=== PATIENT | female | born 1960 | race Caucasian/White ===

== ENCOUNTER 2016-11-04 15:25 | Emergency (ER) | payer MEDICARE ==
[~2016-11-04] VITALS: Ht 154.9 cm; Wt 50.0 kg
[~2016-11-04 15:25] MED LIST: ALBU8.5H2 IH; ALBU8.5H4 IH; BECL8.7A5 INH; DIAZ5TAB3 PO; ESTR42.52 VG; FLUT16SP2 NS; LAMO200T2 PO; LEVO50TA6 PO; LIT450 PO; OMEP20TA86 PO; PROP40TA5 PO; QUET300T PO; TOPI200T7 PO
[2016-11-04 15:37] VITALS: BP 101/70; PULSE 55; RESP 16; O2SAT 99
[2016-11-04 16:28] LABS: BASOPHILS % (AUTO) 0.2 % (0-3); EOSINOPHILS % (AUTO) 2.5 % (0-5); MONOCYTES % (AUTO) 8.3 % (4-12); Mean Corpuscular Hemoglobin 30.3 pg (27.0-35.0); Mean Corpuscular Volume 93.7 fL (81-100); Platelet Count 233 bil/L (150-400)
--- NOTE | 2016-11-04 16:40 | DRSVH ---
PROCEDURE: X-RAY CHEST ONE VIEW, PORTABLE ([id number]) INDICATIONS: SHORT OF BREATH TECHNIQUE: One view of the chest was acquired. COMPARISON: [facility], CR, CHEST 2VW, 02/21/2012, 20:09. FINDINGS: Surgical changes and devices: None. Lungs and pleura: No pleural effusions or pneumothorax. Lungs are clear. Mediastinum: Mediastinal contours appear normal. Heart size is normal. Bones and chest wall: No suspicious bony lesions. Overlying soft tissues appear unremarkable. IMPRESSION: Normal for age. Dictated by: Len Stone M.D. on 11/04/2016 at 16:38 Approved by: Len Stone M.D. on 11/04/2016 at 16:38
[2016-11-04] MEDS ORDERED: predniSONE 20 mg Tablet PO ONE (18:55)
[2016-11-04] MEDS ORDERED: Albuterol-Ipratropium 3 mL Inhalation Solution NEB ONE (19:00)
[2016-11-04] MEDS ORDERED: Albuterol 2.5 mg/3 mL Inhalation Solution NEB ONE ×3 (19:00→20:25)
--- NOTE | 2016-11-04 19:35 | ED.REPORT ---
HPI-Dyspnea / Wheezing Date of Service Nov 04, 2016 ED Provider: Thaddeus Paez PA-C Lynette is a 56-year-old female with a history of asthma who presents with a chief complaint of wheezing. Patient states that her asthma has been acting up since yesterday, with wheezing, coughing and a sensation that she cannot get all the air out of her lungs. Also complaints of dyspnea, malaise and rhinorrhea. Denies nasal congestion, eye symptoms, ear symptoms, palpitations, abdominal pain, vomiting, diarrhea fever, chills She manages her asthma with her daily inhaler which she cannot recall the name of as well as albuterol nebulizer and MDI. She has used a significant amount of albuterol today. Reports a history of craniotomy 4 years ago and bipolar disorder that is well controlled. Nursing Notes Stated Complaint: ASTHMA PROBLEMS Chief Complaint: Respiratory Distress Nursing Notes Reviewed: Yes Allergies: Coded Allergies: Codfish (Verified Allergy, Severe, Anaphylaxis, 11/05/16) sumatriptan (Verified Allergy, Severe, throat tightening, 11/05/16) Scheduled Beclomethasone Dipropionate (Qvar) 8.7 Gm Aer.w.adap 2 PUFF INH DAILY Estradiol (Estrace) 42.5 Gm Cream.appl 1 G VG twice weekly Fluticasone Propionate (Flonase Nasal) 16 Gm [place].susp 2 SPRAYS NS BID Lamotrigine (Lamotrigine) 200 Mg Tablet 100 MG PO BID Levothyroxine (Levothyroxine) 50 Mcg Tablet 100 MCG PO DAILY [place] Carbonate ([place] Carbonate XR) 450 Mg Tablet.er 450 MG PO BID Omeprazole (Omeprazole) 20 Mg Tablet.dr 20 MG PO DAILY Oseltamivir Phosphate (Oseltamivir Phosphate) 75 Mg Capsule 75 MG PO BID Prednisone (PredniSONE) 50 Mg Tablet 50 MG PO DAILY Propranolol HCl (Propranolol HCl) 40 Mg Tablet 120 MG PO DAILY Quetiapine Fumarate (Seroquel) 300 Mg Tablet 400 MG PO HS Topiramate (Topiramate) 200 Mg Tablet 200 MG PO BID Scheduled PRN Albuterol HFA (Albuterol HFA) 8.5 Gm Hfa.aer.ad 1 PUFF IH Q4 PRN PRN For Shortness of Breath Albuterol HFA (Proair HFA) 8.5 Gm Hfa.aer.ad 2 PUFFS IH Q4 PRN PRN For Shortness of Breath Albuterol Neb Soln (Albuterol Neb Soln) 2.5 Mg/3 Ml Vial.neb 2.5 MG INHALATION Q4H PRN PRN For Wheezing Albuterol Neb Soln (Albuterol Neb Soln) 2.5 Mg/3 Ml Vial.neb 2.5 MG INHALATION Q4H PRN PRN For Wheezing Diazepam (Diazepam) 5 Mg Tablet 5 MG PO TID PRN PRN For Anxiety General Time Seen by MD: 18:44 Chief Complaint Asthma attack Risk Factors PERC Rule All PERC criteria "No", PERC rule satisfied Past Medical History Past Medical History Notes: PCP: Dr. Tania Palomino Past Medical History Bipolar, TBI subdural bleed 2011 Reports: Asthma, GERD Past Surgical History Craniotomy 2012 Abdominalplasty 03/09/15, pt states 10# of pendulous pannus removed. Reports: , Hysterectomy Family History Reports: Cancer Smoking History Never Smoker Social History Alcohol Use: "Social" Drug Use: Denies drug use Ambulatory Status Independent Review of Systems General: Admits Malaise, Denies fever, chills HEENT: Denies congestion, headache, sore throat. Respiratory: Admits dyspnea, cough, shortness of breath, wheezing. Cardiovascular: Denies chest pain, palpitations. Gastrointestinal: Denies vomiting, diarrhea, abdominal pain. Otherwise as noted in HPI. Physical Exam General: Ill appearing, well developed, thin, no acute distress. Head: Atraumatic, normocephalic. Eyes: No scleral icterus or injection. No discharge. Vision grossly intact. ENT: Voice clear, hearing grossly intact. Respiratory: Regular rate and rhythm. Mild diffuse wheezes bilaterally, mild rhonchi in right base Cardiovascular: Regular rate and rhythm, without murmur, gallop or rub. No pedal edema. Gastrointestinal: Abdomen flat and non-tender without guarding or rebound. Bowel sounds normoactive. Skin: Warm and dry. Neurological: Grossly nonfocal. Psychological: Alert and oriented. Speech appropriate, linear and logical. Behavior appropriate. Initial Vital Signs Vital Signs (First) Date Time Temp Pulse Resp B/P Pulse Ox O2 Delivery O2 Flow Rate FiO2 11/04/16 15:37 37.0 55 16 101/70 99 Room Air Initial VS: Reviewed, Vital signs abnormal (bradycardia) Interpretation & Diagnostics Lab Results Interpretation Result Diagram: 11/04/16 1604 11/04/16 1604 Test 11/04/16 16:04 White Blood Count 8.3th/mm3 (3.8-10.1) Red Blood Count 4.26mil/mm3 (3.90-5.20) Hemoglobin 12.9g/dL (12.0-15.6) Hematocrit 39.9% (35.0-46.0) Mean Corpuscular Volume 93.7fL (81-100) Mean Corpuscular Hemoglobin 30.3pg (27.0-35.0) Mean Corpuscular Hemoglobin Concent 32.3% (32.0-37.0) Red Cell Distribution Width 13.1% (12.3-15.4) Platelet Count 233bil/L (150-400) Neutrophils (%) (Auto) 67.0% (40-74) Lymphocytes (%) (Auto) 21.9% (14-46) Monocytes (%) (Auto) 8.3% (4-12) Eosinophils (%) (Auto) 2.5% (0-5) Basophils (%) (Auto) 0.2% (0-3) Sodium Level 135mEq/L (134-144) Potassium Level 4.3mEq/L (3.5-5.2) Chloride Level 102mEq/L (97-108) Carbon Dioxide Level 24mmol/L (18-29) Blood Urea Nitrogen 15mg/dL (6-24) Creatinine 1.05mg/dL (0.57-1.00) Estimat Glomerular Filtration Rate 78mL/min (>59) Glucose Level 109mg/dL (60-99) Calcium Level 9.8mg/dL (8.5-10.1) Total Bilirubin 0.2mg/dL (0.0-1.2) Aspartate Amino Transf (AST/SGOT) 25U/L (0-50) Alanine Aminotransferase (ALT/SGPT) 32U/L (0-32) Alkaline Phosphatase 91U/L (25-150) Total Protein 6.8g/dL (6.4-8.4) Albumin 4.2g/dL (3.4-5.0) Hold Urena Top Tube Received (Received) X-Ray Chest Interpretation Chest Xray Interpretation: PROCEDURE: X-RAY CHEST ONE VIEW, PORTABLE ([id number]) INDICATIONS: SHORT OF BREATH IMPRESSION: Normal for age. Interpretation / Wet Read by: Interpret - Radiologist Re-Eval/Medical Decision Med Decision/Clinical Course Discussed this case with Dr. Bunn, who met with and examine the patient Otherwise healthy 56-year-old female with a history of asthma presents with chief complaint of wheezing since yesterday. Symptoms are familiar to her and consistent with her typical asthma exacerbation. Says that she feels that she cannot get the air out. Attempting to treated with with albuterol nebulizer and MDI. Vitals and labs are within acceptable limits, physical examination is fairly benign exception of mild wheezes in all garcia. Patient responded minimally to 1 treatment of DuoNeb, albuterol nebulizers and prednisone. Follow treatment with additional albuterol, IV Solu-Medrol, IV magnesium. Lungs are clear in all garcia on reassessment. Patient feels tired but states she feels comfortable with going home. Patient cough is not productive of sputum, so antibiotic treatment is deferred. Discharge patient with prescription for Tamiflu because she did not receive the flu vaccination, 5 days of prednisone, and albuterol nebulizer solution. Advise primary care follow-up, return precautions Re-Evaluation/Progress #1: Time of Eval: 20:06 Re-Evaluation/Progress Note: After the first round of breathing treatments, the patient reports she feels better. On auscultation mild wheezes remain though perhaps slightly improved. Rhonchi in right base are less noticeable. Re-Evaluation/Progress #2: Time of Eval: 21:14 Re-Evaluation/Progress Note: Patient's lungs are clear of wheezes now she states that she feels tired but is rated home. Discussed the case again with Dr. Bunn who suggested Tamiflu, antibiotics if any sputum production, 5 days of prednisone Discharge & Departure Impression: Primary Impression: Asthma exacerbation Disposition: Home Discharge Condition All VS Reviewed: Yes Condition: Stable Patient Instructions: Asthma (ED) Additional Instructions: Evaluation for wheezing in the ED. History and physical suggests that this is your familiar asthma exacerbation. Low concern for pulmonary embolus. Responded well to treatment in the department, and it sounds like you feel comfortable being discharged home. I will write a prescription for Tamiflu because you have not received the flu shot, as well as prescriptions for prednisone to be taken for 5 days and albuterol nebulizer solution. Please follow up with your primary care provider in the next week to reassess the management of your asthma. Return to the emergency department for any new or worsening symptoms including wheezing, shortness of breath. Referrals: Tania Palomino MD (PCP) EDSupervising Provider for APC: Sai Bunn DO Attending Statement 56-year-old female that rather impressive asthma flareup. She has a history of chronic asthma. She has no PE or DVT risk factors. She has no pleuritic chest pain. Wells criteria is low risk. Pulmonary emboli felt to be very unlikely as a cause of her acute asthma exacerbation. She is aggressively treated at discharge she looked and felt much better. There is an impressive influenza A outbreak. We will place her on Tamiflu. We will place her on a course of antibiotics and steroids. Recommended close outpatient follow-up. At discharge respiratory score was low. She was not tachypneic. She is not hypoxic. I could auscultate no further wheeze. copies to: Tania Palomino MD, Seth PA-C Nov 04, 2016 19:35 Sai Bunn DO Nov 05, 2016 18:29
[2016-11-04 19:40] VITALS: PULSE 60; RESP 16; O2SAT 100
[2016-11-04] MEDS ORDERED: MethylprednisoLONE Sodium Succinate 62.5 mg/mL 2 mL Inj IVPUSH ONE (20:25)
[2016-11-04 20:37] VITALS: PULSE 59; RESP 18; O2SAT 100
[2016-11-04] MEDS ORDERED: Promethazine Inj 25 MG in 0.9% Sodium Chloride 50 ML IV ONE (20:50)
[2016-11-04] MEDS ORDERED: ALBU2.5V4 INHALATION (21:20)
[2016-11-04] MEDS ORDERED: PRED50TA PO (21:20)
[2016-11-04] MEDS ORDERED: OSEL75CA15 PO (21:21)
[2016-11-04 21:32] VITALS: BP 112/71; PULSE 58; RESP 18; O2SAT 100
[2016-11-05] MEDS ORDERED: ALBU2.5V4 INHALATION (17:10)
== END 2016-11-04 21:34 | disposition home or self-care (01) ==
LOC: SED 16:00
DX: J45.901 Unspecified asthma with (acute) exacerbation (principal); K21.9 Gastro-esophageal reflux disease without esophagitis; F31.9 Bipolar disorder, unspecified; Z87.820 Personal history of traumatic brain injury; Z88.8 Allergy status to other drugs, medicaments and biological substances
CPT/HCPCS: 36415; 71010; 80053; 85025; 94644; 94645; 96374; 96375; 99285; J2930; J7613; J7620

== ENCOUNTER 2016-11-05 14:15 | Emergency (ER) | payer MEDICARE ==
[~2016-11-05] VITALS: Ht 154.9 cm; Wt 50.0 kg
[~2016-11-05 14:15] MED LIST changes: +ALBU2.5V4 INHALATION; +OSEL75CA15 PO; +PRED50TA PO
[2016-11-05 14:20] VITALS: BP 117/80; PULSE 61; RESP 16; O2SAT 100
--- NOTE | 2016-11-05 14:34 | ED.REPORT ---
HPI-Dyspnea / Wheezing Date of Service Nov 05, 2016 ED Provider: Haroldo Catherine MD This is a 56 year old female presenting with a history of asthma presenting to the ED with chest pressure that began 4 hours ago. Chest pressure is described as a burning tightness. Also reports cough and shortness of breath. Nebulizers at home have not provided relief. She states that symptoms are similar to those she experiences with asthma exacerbation. Pt was seen in the ED yesterday with similar presentation, diagnosed with asthma exacerbation. . Presents today with persistent symptoms. Denies fever, chills, rhinorrhea, nausea, or vomiting. Nursing Notes Stated Complaint: ASHTMA Chief Complaint: Respiratory Complaints Nursing Notes Reviewed: Yes Allergies: Coded Allergies: Codfish (Verified Allergy, Severe, Anaphylaxis, 11/05/16) sumatriptan (Verified Allergy, Severe, throat tightening, 11/05/16) Scheduled Beclomethasone Dipropionate (Qvar) 8.7 Gm Aer.w.adap 2 PUFF INH DAILY Estradiol (Estrace) 42.5 Gm Cream.appl 1 G VG twice weekly Fluticasone Propionate (Flonase Nasal) 16 Gm [place].susp 2 SPRAYS NS BID Lamotrigine (Lamotrigine) 200 Mg Tablet 100 MG PO BID Levothyroxine (Levothyroxine) 50 Mcg Tablet 100 MCG PO DAILY [place] Carbonate ([place] Carbonate XR) 450 Mg Tablet.er 450 MG PO BID Omeprazole (Omeprazole) 20 Mg Tablet.dr 20 MG PO DAILY Oseltamivir Phosphate (Oseltamivir Phosphate) 75 Mg Capsule 75 MG PO BID Prednisone (PredniSONE) 50 Mg Tablet 50 MG PO DAILY Propranolol HCl (Propranolol HCl) 40 Mg Tablet 120 MG PO DAILY Quetiapine Fumarate (Seroquel) 300 Mg Tablet 400 MG PO HS Topiramate (Topiramate) 200 Mg Tablet 200 MG PO BID Scheduled PRN Albuterol HFA (Albuterol HFA) 8.5 Gm Hfa.aer.ad 1 PUFF IH Q4 PRN PRN For Shortness of Breath Albuterol HFA (Proair HFA) 8.5 Gm Hfa.aer.ad 2 PUFFS IH Q4 PRN PRN For Shortness of Breath Albuterol Neb Soln (Albuterol Neb Soln) 2.5 Mg/3 Ml Vial.neb 2.5 MG INHALATION Q4H PRN PRN For Wheezing Albuterol Neb Soln (Albuterol Neb Soln) 2.5 Mg/3 Ml Vial.neb 2.5 MG INHALATION Q4H PRN PRN For Wheezing Diazepam (Diazepam) 5 Mg Tablet 5 MG PO TID PRN PRN For Anxiety General Time Seen by MD: 14:31 Chief Complaint Shortness of breath Hx Obtained From: Patient Arrived By: Walk-in Sudden in Onset?: Yes Onset Occurred: 1 - 4 hours ago Symptom Duration: Since onset Severity: Current: No pain currently Pertinent Negative: Pt denies other symptoms Recent Healthcare: No recent hospitalization, Recent doctor visit Similar Sx Previous: Yes Past Medical History Past Medical History Notes: PCP: Dr. Tania Palomino Past Medical History Bipolar, TBI subdural bleed 2011 Reports: Asthma, GERD Past Surgical History Craniotomy 2012 Abdominalplasty 03/09/15, pt states 10# of pendulous pannus removed. Reports: , Hysterectomy Family History Reports: Cancer Smoking History Never Smoker Social History Alcohol Use: "Social" Drug Use: Denies drug use Ambulatory Status Independent Review of Systems Constitutional: Denies: Chills, Fever Respiratory: Reports: Non-productive cough, Shortness of breath Cardiovascular: Reports: Chest pain (pressure) Musculoskeletal: Denies: Back pain Complete sys rev & neg: except as marked. Physical Exam Initial Vital Signs Vital Signs (First) Date Time Temp Pulse Resp B/P Pulse Ox O2 Delivery O2 Flow Rate FiO2 11/05/16 14:20 37.3 61 16 117/80 100 Room Air 11/05/16 15:59 3 Initial VS: Reviewed Head / Eyes: Atraumatic, Normocephalic, PERRL ENT: Mucous membranes moist, Conjunctiva normal, No scleral icterus Abdomen / GI: Soft, Non-tender, No guarding, No rebound, No distention Extremities: Vascular intact, Neuro intact, No swelling, No tenderness Skin: Warm Neurologic: Alert, Oriented, Nonfocal Psychiatric: Mood/affect normal, Behavior normal, Normal thought content General/Constitutional: Awake, Alert Neck: Atraumatic, Supple, No meningismus, Full range of motion, No swelling, Non-tender, No masses Wheezing / Retractions: Positive: Wheeze insp/exp diffuse good air movement Cardiovascular: Heart rate NL, Regular rhythm, Heart sounds NL, Peripheral circulation NL Interpretation & Diagnostics X-Ray Chest Interpretation Chest Xray Interpretation: IMPRESSION: Torso dyspnea is not found. No pneumonia seen. Dictated by: Len Stone M.D. on 11/05/2016 at 15:40 Approved by: Len Stone M.D. on 11/05/2016 at 15:40 Re-Eval/Medical Decision Med Decision/Clinical Course 56-year-old female history of asthma presenting with asthma exacerbation. Patient reports initially or thyroid URI symptoms several days ago which has resolved. She was seen for asthma exacerbation yesterday and was given IV Solu-Medrol and prescription for prednisone which she has not picked up. Reports using her nebulizer overnight. She is in no respiratory distress on arrival. Oxygen is normal. She was given 2 DuoNeb here and felt much better with discharged home in good condition. She was given 1 dose of prednisone here and plans to pick remover her prescription for prednisone prescription to resume tomorrow. I also gave her a refill for her nebulizer solution. Return precautions given. Re-Evaluation/Progress : Time of Eval: 17:11 Patient Status: Complete relief Re-Evaluation/Progress Note: Condition improved, plan for d/c, all questions addressed. Counseled Regarding: Diagnosis, Lab results, Need for follow-up, When/why to return to ED Discharge & Departure Impression: Primary Impression: Asthma exacerbation Disposition: Home Discharge Condition All VS Reviewed: Yes Condition: Stable Patient Instructions: Asthma (ED) Additional Instructions: Continue to use nebulizer at home. Follow-up with your primary care provider. Return to the emergency department if you develop any new or worsening symptoms. Referrals: Tania Palomino MD (PCP) Scribe Attestation Portions of this note were transcribed by Janina Drew. I, Dr. Catherine personally performed the history, physical exam and medical decision-making; I reviewed and confirmed the accuracy of the information in the transcribed note. Signed by: Janina Drew. 11/05/2015, 15:00. Haroldo Catherine MD Nov 05, 2016 14:34 JANINA DREW Nov 05, 2016 14:35
[2016-11-05] MEDS ORDERED: predniSONE 20 mg Tablet PO ONE (15:35)
[2016-11-05] MEDS ORDERED: Albuterol-Ipratropium 3 mL Inhalation Solution NEB ONE (15:35)
--- NOTE | 2016-11-05 15:43 | DRSVH ---
PROCEDURE: X-RAY CHEST ONE VIEW, PORTABLE ([id number]) INDICATIONS: dyspnea TECHNIQUE: One view of the chest was acquired. COMPARISON: [facility], CR, XR CHEST 1VW (PORTABLE), 11/04/2016, 16:13. FINDINGS: Surgical changes and devices: None. Lungs and pleura: No pleural effusions or pneumothorax. Lungs are clear. Mediastinum: Mediastinal contours appear normal. Heart size is normal. Bones and chest wall: No suspicious bony lesions. Overlying soft tissues appear unremarkable. IMPRESSION: Torso dyspnea is not found. No pneumonia seen. Dictated by: Len Stone M.D. on 11/05/2016 at 15:40 Approved by: Len Stone M.D. on 11/05/2016 at 15:40
[2016-11-05 15:59] VITALS: PULSE 59; RESP 22; O2SAT 97
[2016-11-05] MEDS ORDERED: ALBU2.5V4 INHALATION (17:10)
[2016-11-05 17:25] VITALS: BP 121/80; PULSE 60; RESP 18; O2SAT 97
[2016-11-05 17:26] VITALS: BP 121/80; PULSE 60; RESP 18; O2SAT 97
== END 2016-11-05 17:27 | disposition home or self-care (01) ==
LOC: SED 14:15
DX: J45.901 Unspecified asthma with (acute) exacerbation (principal); K21.9 Gastro-esophageal reflux disease without esophagitis; Z88.8 Allergy status to other drugs, medicaments and biological substances
CPT/HCPCS: 71010; 99284; J7620

== ENCOUNTER 2016-11-20 10:22 | Emergency (ER) | payer MEDICARE ==
[2016-11-20 10:28] VITALS: BP 129/91; PULSE 58; RESP 18; O2SAT 100
[2016-11-20 10:49] VITALS: BP 131/84; PULSE 57; RESP 25; O2SAT 100
--- NOTE | 2016-11-20 10:59 | ED.REPORT ---
HPI-General Illness Date of Service Nov 20, 2016 ED Provider: Haroldo Catherine MD Patient is a 56-year-old female with a history of subdural hematoma and asthma who reports to the ED today with double vision and trouble with balance, onset 3 hours ago. Patient states she got up this morning, was drinking coffee, and suddenly began to experience double vision, with elevated severity in the right eye. Her sister had to help her get dress and then came to the hospital. Pt reports a bad headache two nights ago. She has experienced a similar episode four years when she was diagnosed with subdural hematoma. Pt c/o associated generalized weakness, confusion, and light headedness. She denies fevers, chills, vomiting, and nausea. Patient is not on blood thinners. Nursing Notes Stated Complaint: PAIN IN EYES KEEPS GOING CROSSED EYED Chief Complaint: General Complaint Nursing Notes Reviewed: Yes Allergies: Coded Allergies: Codfish (Verified Allergy, Severe, Anaphylaxis, 11/05/16) sumatriptan (Verified Allergy, Severe, throat tightening, 11/05/16) Scheduled Beclomethasone Dipropionate (Qvar) 8.7 Gm Aer.w.adap 2 PUFF INH DAILY Estradiol (Estrace) 42.5 Gm Cream.appl 1 G VG twice weekly Fluticasone Propionate (Flonase Nasal) 16 Gm [place].susp 2 SPRAYS NS BID Lamotrigine (Lamotrigine) 200 Mg Tablet 100 MG PO BID Levothyroxine (Levothyroxine) 50 Mcg Tablet 100 MCG PO DAILY [place] Carbonate ([place] Carbonate XR) 450 Mg Tablet.er 450 MG PO BID Omeprazole (Omeprazole) 20 Mg Tablet.dr 20 MG PO DAILY Oseltamivir Phosphate (Oseltamivir Phosphate) 75 Mg Capsule 75 MG PO BID Prednisone (PredniSONE) 50 Mg Tablet 50 MG PO DAILY Propranolol HCl (Propranolol HCl) 40 Mg Tablet 120 MG PO DAILY Quetiapine Fumarate (Seroquel) 300 Mg Tablet 400 MG PO HS Topiramate (Topiramate) 200 Mg Tablet 200 MG PO BID Scheduled PRN Albuterol HFA (Albuterol HFA) 8.5 Gm Hfa.aer.ad 1 PUFF IH Q4 PRN PRN For Shortness of Breath Albuterol HFA (Proair HFA) 8.5 Gm Hfa.aer.ad 2 PUFFS IH Q4 PRN PRN For Shortness of Breath Albuterol Neb Soln (Albuterol Neb Soln) 2.5 Mg/3 Ml Vial.neb 2.5 MG INHALATION Q4H PRN PRN For Wheezing Albuterol Neb Soln (Albuterol Neb Soln) 2.5 Mg/3 Ml Vial.neb 2.5 MG INHALATION Q4H PRN PRN For Wheezing Diazepam (Diazepam) 5 Mg Tablet 5 MG PO TID PRN PRN For Anxiety General Time Seen by MD: 10:30 Chief Complaint Other (diplopia) Hx Obtained From: Patient Arrived By: Walk-in Sudden in Onset?: Yes Onset Occurred: 1 - 4 hours ago Symptom Duration: Since onset Severity: Current: No pain currently Recent Healthcare: No recent doctor visit, No recent hospitalization Similar Sx Previous: No Past Medical History Past Medical History Notes: PCP: Dr. Tania Palomino Past Medical History Bipolar, TBI subdural bleed 2011 Reports: Asthma, GERD Past Surgical History Craniotomy 2012 Abdominalplasty 03/09/15, pt states 10# of pendulous pannus removed. Reports: , Hysterectomy Family History Reports: Cancer Smoking History Never Smoker Social History Alcohol Use: "Social" Drug Use: Denies drug use Ambulatory Status Independent Review of Systems Full Review of Systems Constitutional: Reports: Fatigue, Weakness - generalized, Denies: Chills, Fever Eyes: Reports: Diplopia GI: Denies: Nausea, Vomiting Neurologic: Reports: Headache, Lightheaded, Weakness Psychiatric: Reports: Confusion Complete sys rev & neg: except as marked. Physical Exam Vital Signs Vital Signs Date Time Temp Pulse Resp B/P Pulse Ox O2 Delivery O2 Flow Rate FiO2 11/20/16 14:36 36.8 60 18 128/80 100 Room Air 11/20/16 10:49 57 25 131/84 100 Room Air 11/20/16 10:28 36.8 58 18 129/91 100 Room Air Initial VS: Reviewed General/Constitutional: Well-developed, Well-nourished Head / Eyes: Atraumatic, Normocephalic, PERRL ENT: Mucous membranes moist, Conjunctiva normal, No scleral icterus Neck: Supple, Non-tender, Full range of motion Respiratory: Breath sounds normal, Clear to auscultation, No respiratory distress Cardiovascular: Regular rate & rhythm, Heart sounds normal, Intact distal pulses Abdomen / GI: Soft, Non-tender, No guarding, No rebound, No distention Extremities: Vascular intact, Neuro intact, No swelling, No tenderness Skin: Warm, Dry, No cyanosis Neurologic: Alert, Oriented, Nonfocal Psychiatric: Mood/affect normal, Behavior normal, Normal thought content Neurologic: Oriented X3 NIH stroke scale 0 Interpretation & Diagnostics Lab Results Interpretation Result Diagram: 11/20/16 1146 11/20/16 1146 Test 11/20/16 10:58 11/20/16 11:46 11/20/16 11:48 Hold Purple Top Tube Received (Received) Hold Blue Top Tube Received (Received) Hold [place] Top Tube Received (Received) White Blood Count 6.3th/mm3 (3.8-10.1) Red Blood Count 4.29mil/mm3 (3.90-5.20) Hemoglobin 13.0g/dL (12.0-15.6) Hematocrit 39.5% (35.0-46.0) Mean Corpuscular Volume 92.1fL (81-100) Mean Corpuscular Hemoglobin 30.3pg (27.0-35.0) Mean Corpuscular Hemoglobin Concent 32.9% (32.0-37.0) Red Cell Distribution Width 13.4% (12.3-15.4) Platelet Count 222bil/L (150-400) Neutrophils (%) (Auto) 56.8% (40-74) Lymphocytes (%) (Auto) 31.6% (14-46) Monocytes (%) (Auto) 8.4% (4-12) Eosinophils (%) (Auto) 2.5% (0-5) Basophils (%) (Auto) 0.5% (0-3) Prothrombin Time 9.7sec (8.1-12.5) Prothromb Time International Ratio 0.91ratio Activated Partial Thromboplast Time 25.9sec (22.8-33.0) Sodium Level 138mEq/L (134-144) Potassium Level 3.9mEq/L (3.5-5.2) Chloride Level 106mEq/L (97-108) Carbon Dioxide Level 21mmol/L (18-29) Blood Urea Nitrogen 21mg/dL (6-24) Creatinine 1.04mg/dL (0.57-1.00) Estimat Glomerular Filtration Rate 79mL/min (>59) Glucose Level 87mg/dL (60-99) Calcium Level 9.4mg/dL (8.5-10.1) Total Bilirubin 0.3mg/dL (0.0-1.2) Aspartate Amino Transf (AST/SGOT) 23U/L (0-50) Alanine Aminotransferase (ALT/SGPT) 24U/L (0-32) Alkaline Phosphatase 77U/L (25-150) Troponin T < 0.010ug/L (0.0-0.011) Total Protein 6.5g/dL (6.4-8.4) Albumin 4.1g/dL (3.4-5.0) Hold Urena Top Tube Received (Received) Salicylates Level 5.1ug/mL (30-250) Acetaminophen Level < 15.0ug/mL Rx (10-25) [place] Level 1.3mEq/L (0.5-1.5) Alcohol, Quantitative < 10mg/dL (0-10) Urine Color Straw (YELLOW) Urine Appearance Hazy (CLEAR,HAZY) Urine pH 7.5 (5.0-8.0) Urine Specific [place] 1.005 (1.003-1.035) Urine Protein Negativemg/dL (NEG,TRACE) Urine Glucose (UA) Negativemg/dL (NEGATIVE) Urine Ketones Negativemg/dL (NEGATIVE) Urine Occult Blood Small (NEGATIVE) Urine Nitrite Negative (NEGATIVE) Urine Bilirubin Negative (NEGATIVE) Urine Urobilinogen Normalmg/dL (NORMAL) Urine Leukocyte Esterase Negative (NEGATIVE) Urine RBC 0-2/hpf (0-2) Urine WBC 0-5/hpf (0-5) Urine Epithelial Cells Occasional/hpf (NONE-MOD) Urine Crystals None seen (NONE SEEN) Urine Bacteria Few/hpf (NONE-FEW) Urine Hyaline Casts None/lpf (NONE) Urine Granular Casts None seen (NONE SEEN) Urine Waxy Casts None seen (NONE SEEN) Urine Red Blood Cell Casts None seen (NONE SEEN) Urine White Blood Cell Casts None seen (NONE SEEN) Urine Mucus None seen (None Seen) Urine Trichomonas None seen (NONE SEEN) Urine Yeast None (NONE SEEN) Urinalysis Comment None Urine Culture Reflexed Not indicated ECG Interpretation ECG Interpretation: t-wave inversion in Time: 12:30 Interpreted by: ED physician Normal ECG Interpretation: Normal sinus rhythm (55), No change from prior ECGs X-Ray Chest Interpretation Chest Xray Interpretation: IMPRESSION: No acute cardiopulmonary disease process. Dictated by: Kacey Cruz MD, PhD on 11/20/2016 at 11:42 Approved by: Kacey Cruz MD, PhD on 11/20/2016 at 11:49 View: Portable Interpretation / Wet Read by: Interpret - Radiologist CT Head Interpretation IMPRESSION: 1. No acute intracranial abnormality. Dictated by: Rashida Velez M.D. on 11/20/2016 at 11:54 Approved by: Rashida Velez M.D. on 11/20/2016 at 11:56 Study: Head CT no contrast Interpretation / Wet Read by: Interpret - Radiologist Re-Eval/Medical Decision Med Decision/Clinical Course 56-year-old female history of traumatic brain injury, bipolar, anxiety presenting complaining of right eye blurry vision and weakness earlier today. Patient received a CT brain immediately on arrival which was normal. Her NIH stroke scale was 0. Her visual acuity showed 20/40 in the right eye. Labs unremarkable. [place] level within normal limits. Patient was observed and her symptoms resolved completely. When they were present they were subjective and were not identified by any objective measures. I discussed with patient and she preferred to go home. She is advised to follow-up with her primary doctor in several days. She is also advised to follow-up with her eye doctor. Return precautions given. Time of Eval: 14:14 Patient Status: Condition improved Re-Evaluation/Progress Note: Pt rechecked. Informed pt of diagnosis and plan for treatment. Pt understands and agrees with plan. F/U and RTER warnings given. All questions addressed. Counseled Regarding: Diagnosis, Lab results, Need for follow-up, When/why to return to ED Discharge & Departure Primary Impression: Blurry vision Additional Impression: Weakness Disposition: Home Discharge Condition All VS Reviewed: Yes Condition: Stable Additional Instructions: Thank you for coming to the Emergency Department today. After review of your labs and cat scan, there are no signs of a stroke. Follow up with your eye doctor for decreased vision. Please return to the Emergency Department for any new or worsening symptoms including new blurry vision, headaches, weakness or numbness in one arm or leg, and slurred speech. We hope you feel better soon! Referrals: Tania Palomino MD (PCP) Scribe Attestation Portion of this note were transcribed by Maicol Marshall. I, Dr. Catherine, personally performed the history, physical exam, and medical decision-making: I reviewed and confirmed the accuracy for the information in the transcribed note. Signed by: lorelei Mondragon, 11/20/16 2376 copies to: Tania Palomino MD, Ben M MD Nov 20, 2016 10:59 MAICOL MARSHALL Nov 20, 2016 11:17
--- NOTE | 2016-11-20 11:51 | DRSVH ---
PROCEDURE: X-RAY CHEST ONE VIEW, PORTABLE ([id number]) INDICATIONS: altered mental status TECHNIQUE: One view of the chest was acquired. COMPARISON: [facility], CR, XR CHEST 1VW (PORTABLE), 11/05/2016, 15:24. FINDINGS: Surgical changes and devices: None. Lungs and pleura: No pleural effusions or pneumothorax. Lungs are clear. Mediastinum: Mediastinal contours appear normal. Heart size is normal. Bones and chest wall: No suspicious bony lesions. Overlying soft tissues appear unremarkable. IMPRESSION: No acute cardiopulmonary disease process. Dictated by: Kacey Cruz MD, PhD on 11/20/2016 at 11:42 Approved by: Kacey Cruz MD, PhD on 11/20/2016 at 11:49
[2016-11-20 11:54] LABS: BASOPHILS % (AUTO) 0.5 % (0-3); EOSINOPHILS % (AUTO) 2.5 % (0-5); MONOCYTES % (AUTO) 8.4 % (4-12); Mean Corpuscular Hemoglobin 30.3 pg (27.0-35.0); Mean Corpuscular Volume 92.1 fL (81-100); NEUTROPHILS % (AUTO) 56.8 % (40-74); Platelet Count 222 bil/L (150-400)
--- NOTE | 2016-11-20 11:56 | DRSVH ---
PROCEDURE: CT BRAIN WITHOUT CONTRAST ([id number]) INDICATIONS: double vision TECHNIQUE: Noncontrast 4.5 mm thick angled axial sections acquired from the foramen magnum to the vertex, with c oronal reformats. COMPARISON: [facility], CT, BRAIN W/O CONTRAST, 05/04/2013, 16:55. [facility], CT, BRAIN W/O CONTRAST, 04/23/2013, 15:08. [facility], CT, BRAIN W/O CONTRAST, 11/28/19 13, 12:47. [facility], CT, BRAIN W/O CONTRAST, 07/31/2012, 17:37. FINDINGS: Image quality: Excellent. CSF spaces: Basal cisterns are patent. No extra-axial fluid collections. Ventricles are normal in size and shape. Brain: No midline shift. No intracranial masses or hemorrhage. Álvarez-white matter interface is norm al. Skull and face: Left frontal craniotomy has been performed. Calvarium and visualized facial bones ar e otherwise intact, without suspicious lesions. Sinuses: Visualized sinuses and mastoids are clear. IMPRESSION: 1. No acute intracranial abnormality. Dictated by: Rashida Velez M.D. on 11/20/2016 at 11:54 Approved by: Rashida Velez M.D. on 11/20/2016 at 11:56
[2016-11-20 12:14] LABS: APPEARANCE,URINE HAZY (CLEAR,HAZY); COLOR,URINE STRAW (YELLOW); OCCULT BLOOD,URINE SMALL (NEGATIVE); PH,URINE 7.5 (5.0-8.0); UROBILINOGEN,URINE NORMAL (NORMAL)
[2016-11-20 12:38] LABS: INR 0.91 ratio
[2016-11-20 12:48] LABS: TROPONIN T < 0.010 ug/L (0.0-0.011)
[2016-11-20 14:36] VITALS: BP 128/80; PULSE 60; RESP 18; O2SAT 100
== END 2016-11-20 14:37 | disposition home or self-care (01) ==
LOC: SED 10:22
DX: H53.8 Other visual disturbances (principal); R53.1 Weakness; R42 Dizziness and giddiness; R41.0 Disorientation, unspecified; F31.9 Bipolar disorder, unspecified; F41.9 Anxiety disorder, unspecified; J45.909 Unspecified asthma, uncomplicated; K21.9 Gastro-esophageal reflux disease without esophagitis; Z87.820 Personal history of traumatic brain injury; Z88.8 Allergy status to other drugs, medicaments and biological substances
CPT/HCPCS: 36415; 70450; 71010; 80053; 80178; 81000; 84484; 85025; 85610; 85730; 93005; 99285; G0480

== ENCOUNTER 2017-03-13 22:26 | Emergency (ER) | payer MEDICARE ==
[~2017-03-13] VITALS: Ht 154.9 cm; Wt 50.0 kg
[2017-03-13 22:34] VITALS: BP 116/79; PULSE 58; RESP 18; O2SAT 99
[2017-03-14] MEDS ORDERED: Albuterol 2.5 mg/3 mL Inhalation Solution NEB ONE ×2 (01:20→02:50)
[2017-03-14] MEDS ORDERED: Albuterol-Ipratropium 3 mL Inhalation Solution NEB ONE ×2 (01:20→02:50)
[2017-03-14 01:40] VITALS: PULSE 61; RESP 20; O2SAT 99
[2017-03-14 02:03] LABS: BASOPHILS % (AUTO) 0.8 % (0-3); EOSINOPHILS % (AUTO) 3.4 % (0-5); MONOCYTES % (AUTO) 15.2 % (4-12); Mean Corpuscular Hemoglobin 30.5 pg (27.0-35.0); Mean Corpuscular Volume 92.8 fL (81-100); NEUTROPHILS % (AUTO) 46.3 % (40-74); Platelet Count 215 bil/L (150-400)
[2017-03-14 02:22] LABS: INR 0.91 ratio
--- NOTE | 2017-03-14 02:24 | ED.REPORT ---
HPI-Dyspnea / Wheezing Date of Service March 14, 2017 ED Provider: Beto Nuñez MD Pt is a 56 y.o. female with a hx of asthma who presents to the ED c/o increased SOB onset 2 days ago. She denies associated cough, fever, and chest pain. Pt reports using her nebulizer 2 hours prior to arrival with no relief. She believes her symptoms are due to seasonal allergies. Nursing Notes Stated Complaint: DIFFICULTY BREATHING Chief Complaint: Respiratory Complaints Nursing Notes Reviewed: Yes Allergies: Coded Allergies: Codfish (Verified Allergy, Severe, Anaphylaxis, 03/13/17) sumatriptan (Verified Allergy, Severe, throat tightening, 11/05/16) Scheduled Beclomethasone Dipropionate (Qvar) 8.7 Gm Aer.w.adap 2 PUFF INH DAILY Beclomethasone Dipropionate (Qvar) 8.7 Gm Aer.w.adap 1 PUFF INHALATION BID Estradiol (Estrace) 42.5 Gm Cream.appl 1 G VG twice weekly Fluticasone Propionate (Flonase Nasal) 16 Gm [place].susp 2 SPRAYS NS BID Lamotrigine (Lamotrigine) 200 Mg Tablet 100 MG PO BID Levothyroxine (Levothyroxine) 50 Mcg Tablet 100 MCG PO DAILY [place] Carbonate ([place] Carbonate XR) 450 Mg Tablet.er 450 MG PO BID Omeprazole (Omeprazole) 20 Mg Tablet.dr 20 MG PO DAILY Oseltamivir Phosphate (Oseltamivir Phosphate) 75 Mg Capsule 75 MG PO BID Prednisone (PredniSONE) 50 Mg Tablet 50 MG PO DAILY Prednisone (PredniSONE) 20 Mg Tablet 60 MG PO DAILY Propranolol HCl (Propranolol HCl) 40 Mg Tablet 120 MG PO DAILY Quetiapine Fumarate (Seroquel) 300 Mg Tablet 400 MG PO HS Topiramate (Topiramate) 200 Mg Tablet 200 MG PO BID Scheduled PRN Albuterol HFA (Albuterol HFA) 8.5 Gm Hfa.aer.ad 1 PUFF IH Q4 PRN PRN For Shortness of Breath Albuterol HFA (Proair HFA) 8.5 Gm Hfa.aer.ad 2 PUFFS IH Q4 PRN PRN For Shortness of Breath Albuterol Neb Soln (Albuterol Neb Soln) 2.5 Mg/3 Ml Vial.neb 2.5 MG INHALATION Q4H PRN PRN For Wheezing Albuterol Neb Soln (Albuterol Neb Soln) 2.5 Mg/3 Ml Vial.neb 2.5 MG INHALATION Q4H PRN PRN For Wheezing Diazepam (Diazepam) 5 Mg Tablet 5 MG PO TID PRN PRN For Anxiety General Time Seen by MD: 01:18 Chief Complaint Shortness of breath Hx Obtained From: Patient Arrived By: Walk-in Sudden in Onset?: Yes Onset Occurred: 2 days ago Symptom Duration: Since onset Location: : None Similar Sx Previous: Yes Past Medical History Past Medical History Notes: PCP: Dr. Tania Palomino Past Medical History Bipolar, TBI subdural bleed 2011 Reports: Asthma, GERD Past Surgical History Craniotomy 2012 Abdominalplasty 03/09/15, pt states 10# of pendulous pannus removed. Reports: , Hysterectomy Family History Reports: Cancer Smoking History Never Smoker Social History Alcohol Use: "Social" Drug Use: Denies drug use Ambulatory Status Independent Review of Systems Constitutional: Denies: Fever Respiratory: Reports: Shortness of breath, Denies: Non-productive cough Cardiovascular: Denies: Chest pain Complete sys rev & neg: except as marked. Physical Exam Initial Vital Signs Vital Signs (First) Date Time Temp Pulse Resp B/P Pulse Ox O2 Delivery O2 Flow Rate FiO2 03/13/17 22:34 37.0 58 18 116/79 99 Room Air Initial VS: Reviewed Head / Eyes: Atraumatic, Normocephalic Abdomen / GI: No distention Extremities: Vascular intact, Neuro intact Skin: Warm, Dry, No cyanosis Neurologic: Alert, Oriented, Nonfocal Psychiatric: Mood/affect normal, Behavior normal, Normal thought content General/Constitutional: Awake, Alert, No acute distress, Well appearing, Well developed, Well hydrated Neck: Atraumatic Expiratory rhonchi Cardiovascular: Heart rate NL, Regular rhythm, Heart sounds NL, Peripheral circulation NL Interpretation & Diagnostics Lab Results Interpretation Result Diagram: 03/14/17 0155 03/14/175 Test 03/14/17 01:55 White Blood Count 5.3th/mm3 (3.8-10.1) Red Blood Count 4.16mil/mm3 (3.90-5.20) Hemoglobin 12.7g/dL (12.0-15.6) Hematocrit 38.6% (35.0-46.0) Mean Corpuscular Volume 92.8fL (81-100) Mean Corpuscular Hemoglobin 30.5pg (27.0-35.0) Mean Corpuscular Hemoglobin Concent 32.9% (32.0-37.0) Red Cell Distribution Width 13.0% (12.3-15.4) Platelet Count 215bil/L (150-400) Neutrophils (%) (Auto) 46.3% (40-74) Lymphocytes (%) (Auto) 34.3% (14-46) Monocytes (%) (Auto) 15.2% (4-12) Eosinophils (%) (Auto) 3.4% (0-5) Basophils (%) (Auto) 0.8% (0-3) Prothrombin Time 9.7sec (8.1-12.5) Prothromb Time International Ratio 0.91ratio Activated Partial Thromboplast Time 27.0sec (22.8-33.0) Sodium Level 140mEq/L (134-144) Potassium Level 3.7mEq/L (3.5-5.2) Chloride Level 108mEq/L (97-108) Carbon Dioxide Level 20mmol/L (18-29) Blood Urea Nitrogen 21mg/dL (6-24) Creatinine 0.90mg/dL (0.57-1.00) Estimat Glomerular Filtration Rate 93mL/min (>59) Glucose Level 101mg/dL (60-99) Lactic Acid Level 0.7mmol/L (0.4-2.0) Calcium Level 9.5mg/dL (8.5-10.1) Magnesium Level 2.3mg/dL (1.6-2.6) Total Bilirubin 0.2mg/dL (0.0-1.2) Aspartate Amino Transf (AST/SGOT) 20U/L (0-50) Alanine Aminotransferase (ALT/SGPT) 18U/L (0-32) Alkaline Phosphatase 86U/L (25-150) Troponin T 0.010ug/L (0.0-0.011) Pro-B-Type Natriuretic Peptide 71pg/mL (0-249) Total Protein 7.5g/dL (6.4-8.4) Albumin 4.5g/dL (3.4-5.0) Procalcitonin 0.09ng/mL (0.00-0.08) Re-Eval/Medical Decision Med Decision/Clinical Course 56-year-old with chronic asthma presents with an exacerbation in the setting of spring allergies. No fever no productive cough no other focal signs of infection. Improved after nebs here. IV Decadron given with prednisone five day course to follow. Beclomethasone to follow that. Follow up with PCP. Continue offer with spacer every 4 hours. Source of Hx: Old records Re-Evaluation/Progress : Time of Eval: 02:42 Re-Evaluation/Progress Note: Pt feels moderately improved after nebulizer. Pt will recieve additional neb treatment before prior to discharge, pt understands and agrees with plan. Counseled Regarding: Diagnosis, Lab results, Need for follow-up, When/why to return to ED Discharge & Departure Impression: Primary Impression: Asthma exacerbation Disposition: Home Discharge Condition All VS Reviewed: Yes Condition: Improved Additional Instructions: Take prednisone three tabs daily for five days. Last day of prednisone, start Beclovent inhaler two puffs twice daily. Follow-up with your doctor in the office. Return if any immediate issues over the weekend. Continue albuterol metered-dose inhaler with spacer two puffs every four hours as needed. Referrals: Tania Palomino MD (PCP) Jacqueline Attestation Portions of this note were transcribed by Kirill Curiel. I, Dr. Nuñez personally performed the history, physical exam and medical decision-making; I reviewed and confirmed the accuracy of the information in the transcribed note. Signed by: Jacqueline Arnold, 03/14/17 and 0256. copies to: Tania Palomino MD, Christopher W MD March 14, 2017 02:24 KIRILL CURIEL March 14, 2017 02:28
[2017-03-14 02:37] LABS: Magnesium 2.3 mg/dL (1.6-2.6); TROPONIN T 0.01 ug/L (0.0-0.011)
[2017-03-14] MEDS ORDERED: BECL8.7A5 INHALATION (02:50)
[2017-03-14] MEDS ORDERED: PRE20 PO (02:50)
[2017-03-14] MEDS ORDERED: Dexamethasone Inj 10 MG in 0.9% Sodium Chloride-Pha MIX 50 ML IV ONE (02:50)
[2017-03-14 02:54] VITALS: PULSE 62; RESP 18; O2SAT 99
[2017-03-14 03:15] VITALS: BP 121/76; PULSE 66; RESP 18; O2SAT 100
--- NOTE | 2017-03-14 09:28 | DRSVH ---
PROCEDURE: X-RAY CHEST, TWO VIEWS ([id number]) INDICATIONS: cough, sob TECHNIQUE: 2 views of the chest were acquired. COMPARISON: [facility], CR, XR CHEST 1VW (PORTABLE), 11/20/2016, 11:25. FINDINGS: Surgical changes and devices: None. Lungs and pleura: No pleural effusions or pneumothorax. Calcified granulomas are noted in the left u pper and right middle lobes. Mediastinum: Mediastinal contours are normal. Heart size is normal. Bones and chest wall: No suspicious bony abnormalities. Soft tissues appear unremarkable. IMPRESSION: No acute pulmonary process. Dictated by: Pamela Abdullahi M.D. on 03/14/2017 at 9:27 Approved by: Pamela Abdullahi M.D. on 03/14/2017 at 9:27
== END 2017-03-14 03:21 | disposition home or self-care (01) ==
LOC: SED 22:26
DX: J45.901 Unspecified asthma with (acute) exacerbation (principal); K21.9 Gastro-esophageal reflux disease without esophagitis; F31.9 Bipolar disorder, unspecified; Z87.820 Personal history of traumatic brain injury; Z88.8 Allergy status to other drugs, medicaments and biological substances
CPT/HCPCS: 36415; 71020; 80053; 83605; 83735; 83880; 84145; 84484; 85025; 85610; 85730; 87040; 94640; 94664; 96374; 99285; J1100; J7613; J7620